=== PATIENT | male | born 1945 | race Caucasian/White ===

== ENCOUNTER 2023-06-07 12:53 | Observation (INO) | payer OTHER ==
[2023-06-07 15:27] LABS: BASO % 0.8 % (0-2.0); EOS % 0.8 % (0-4.5); HEMATOCRIT 48.8 % (35.4-49); HEMOGLOBIN 16.3 GM/dL (11.7-16.9); LYMPH % 15.2 % (8-40); MCH 26.8 pg (25.7-33.7); MCHC 33.4 g/dl (32.0-35.9); MEAN CELL VOLUME 80.3 fl (80-96); MONO % 8.2 % (3.8-10.2); PLATELET COUNT 224 10^3/uL (134-434); RBC 6.09 M/mm3 (4.00-5.60); RDW 14.3 % (11.9-15.9); WHITE BLOOD COUNT 8.5 K/mm3 (4.0-10.0)
[2023-06-07 15:37] LABS: INR 1.12 (0.83-1.09)
[2023-06-07 15:47] LABS: POTASSIUM 4.9 mmol/L (3.5-5.1)
[2023-06-07 15:49] LABS: ALBUMIN 4.2 g/dl (3.4-5.0); CALCIUM 9.7 mg/dL (8.5-10.1)
[2023-06-07 15:52] LABS: BLOOD UREA NITROGEN 28.3 mg/dL (7-18); CREATININE 1.4 mg/dL (0.55-1.3)
[2023-06-07 15:54] LABS: BILIRUBIN,TOTAL 0.9 mg/dL (0.2-1); TOT PROT 7.9 g/dl (6.4-8.2)
[2023-06-07 15:55] LABS: MAGNESIUM 2.7 mg/dL (1.8-2.4)
[2023-06-07 15:57] LABS: N-TERMINAL BNP 1599.5 pg/ml (5-450)
[2023-06-07] MEDS ORDERED: metoPROLOL SUCCINATE 25 MG TAB.SR.24H (FP) PO ONE (18:17)
[2023-06-07] MEDS: metoPROLOL SUCCINATE 25 MG TAB.SR.24H (FP) PO SCH (18:20)
[2023-06-07] MEDS ORDERED: ACETAMINOPHEN 500 MG TABLET (FP) ONE (18:27)
[2023-06-07] MEDS: ACETAMINOPHEN 500 MG TABLET (FP) PO ONE (18:28)
[2023-06-07 21:45] VITALS: BMI 27.2
[2023-06-07] MEDS: ATORVASTATIN CA 10 MG TABLET (FP) PO SCH (21:51)
[2023-06-07] MEDS: APIXABAN 5 MG TABLET PO SCH (21:52)
[2023-06-08 06:48] LABS: BASO % 0.6 % (0-2.0); EOS % 2.3 % (0-4.5); HEMATOCRIT 44.4 % (35.4-49); HEMOGLOBIN 14.9 GM/dL (11.7-16.9); LYMPH % 19.2 % (8-40); MCHC 33.6 g/dl (32.0-35.9); MEAN CELL VOLUME 80.4 fl (80-96); MEAN PLT VOLUME 7.1 fl (7.5-11.1); MONO % 9.4 % (3.8-10.2); NEUT % 68.5 % (42.8-82.8); PLATELET COUNT 197 10^3/uL (134-434); RBC 5.53 M/mm3 (4.00-5.60); RDW 13.8 % (11.9-15.9)
[2023-06-08 07:08] LABS: POTASSIUM 4.3 mmol/L (3.5-5.1)
[2023-06-08 07:14] LABS: CALCIUM 8.3 mg/dL (8.5-10.1)
[2023-06-08 07:18] LABS: CREATININE 1.4 mg/dL (0.55-1.3)
[2023-06-08] MEDS: amLODIPine BESYLATE 10 MG TABLET (FP) PO SCH (09:25)
[2023-06-08] MEDS: LOSARTAN POTASSIUM 25 MG TABLET PO SCH (09:25)
[2023-06-08] MEDS: TAMSULOSIN HCL 0.4 MG CAP PO SCH (09:25)
[2023-06-08 16:39] VITALS: BP 122/87; PULSE 84; RESP 20; TEMP 97.7
== END 2023-06-08 17:05 | disposition home or self-care (01) ==
LOC: JER 12:53 → JERBED 15:54 → J4W 21:23
PROVIDERS: ADMIT Internal Medicine; ATTEND Internal Medicine
DX: I48.91 Unspecified atrial fibrillation (principal); R06.09 Other forms of dyspnea; R07.9 Chest pain, unspecified; R77.8 Other specified abnormalities of plasma proteins; I10 Essential (primary) hypertension; E78.5 Hyperlipidemia, unspecified; F19.21 Other psychoactive substance dependence, in remission; R32 Unspecified urinary incontinence
CPT/HCPCS: 0241U-QW; 36415; 71046-TC-FY; 80048; 80053; 83735; 83880; 84443; 84484; 85025; 85610; 86850; 86900; 86901; 93005; 93010; 93306-TC; 99285-25; G0378